=== PATIENT | female | born 1960 | race Caucasian/White ===

== ENCOUNTER → 2017-03-03 | Outpatient (REF) | LOC: ZLAB.WCH 18:01 | DX: Z01.89 Encounter for other specified special examinations (principal) ==

== ENCOUNTER → 2017-09-12 | Outpatient (REF) | LOC: ZLAB.WCH 18:24 | DX: Z01.89 Encounter for other specified special examinations (principal) ==

== ENCOUNTER → 2017-09-27 | Outpatient (REF) | LOC: ZLAB.WCH 18:10 | DX: Z01.89 Encounter for other specified special examinations (principal) ==

== ENCOUNTER → 2017-10-12 | Outpatient (REF) | LOC: ZLAB.WCH 18:00 | DX: Z01.89 Encounter for other specified special examinations (principal) ==